=== PATIENT | male | born 1990 | race Caucasian/White ===

== ENCOUNTER 2020-01-11 19:34 | Emergency (ER) | payer MEDICAID ==
[~2020-01-11] VITALS: Ht 180.3 cm; Wt 95.3 kg
[2020-01-11 19:41] VITALS: Ht 180.3 cm; Wt 95.3 kg
[2020-01-11 23:35] VITALS: BP 130/84
== END 2020-01-11 23:35 | disposition home or self-care (01) ==
LOC: ED 19:34
DX: S20.214A Contusion of middle front wall of thorax, initial encounter (principal); F17.210 Nicotine dependence, cigarettes, uncomplicated; V87.8XXA Person injured in other specified noncollision transport accidents involving motor vehicle (traffic), initial encounter; Y93.89 Activity, other specified; Y92.89 Other specified places as the place of occurrence of the external cause; Y99.8 Other external cause status
CPT/HCPCS: J1885

== ENCOUNTER 2020-04-10 14:47 | Emergency (ER) | payer MEDICAID ==
[~2020-04-10] VITALS: Ht 177.8 cm; Wt 90.7 kg
[2020-04-10 14:54] VITALS: Ht 177.8 cm; Wt 90.7 kg
[2020-04-11 08:00] VITALS: BP 122/77
== END 2020-04-11 08:00 | disposition home or self-care (01) ==
LOC: ED 14:47
DX: T40.1X1A Poisoning by heroin, accidental (unintentional), initial encounter (principal); Y92.89 Other specified places as the place of occurrence of the external cause